=== PATIENT | male | born 1965 | race Caucasian/White ===

== ENCOUNTER 2019-06-08 19:18 | Emergency (ER) | payer OTHER ==
[~2019-06-08] VITALS: Ht 180.3 cm; Wt 83.9 kg
[2019-06-08] MEDS ORDERED: CIPR-262 PO (19:43)
[2019-06-08] MEDS ORDERED: CEFTRIAXONE 1 G VIAL IM ONE (20:15)
--- NOTE | 2019-06-08 21:15 | NUR ---
Patient discharged to home in stable conditon. Written and verbal after care instructions given. Patient verbalizes understanding of instructions. AMBULATORY W/ STABLE GAIT ALL BELONGINGS W/ PT
[2019-06-08] MEDS ORDERED: CEFTRIAXONE 1 G VIAL ONE (21:20)
[2019-06-08 21:57] VITALS: BP 136/89
== END 2019-06-08 21:20 | disposition home or self-care (01) ==
LOC: ER 19:20
DX: N34.2 Other urethritis (principal); F17.200 Nicotine dependence, unspecified, uncomplicated; Z79.2 Long term (current) use of antibiotics
CPT/HCPCS: 96372; 99283; J0696; J3490; A4663

== ENCOUNTER 2022-03-07 09:46 | Emergency (ER) | payer OTHER ==
[~2022-03-07] VITALS: Ht 180.3 cm; Wt 86.2 kg
[~2022-03-07 09:46] MED LIST: CIPR-262 PO
[2022-03-07] MEDS ORDERED: BICT1TAB PO (10:00)
[2022-03-07] MEDS ORDERED: CEPH500T PO ×2 (10:25→10:26)
[2022-03-07] MEDS ORDERED: SULF1TAB48 PO ×2 (10:25→10:26)
--- NOTE | 2022-03-07 10:48 | NUR ---
Patient discharged to home in stable condition with brisk steady gait. Written and verbal after care instructions given. Patient verbalized understanding and compliance of instructions. Stressed follow up with primary doctor and/or [facility] or return to ER for worsening s/s.
== END 2022-03-07 10:48 | disposition home or self-care (01) ==
LOC: ER 09:46
DX: L02.415 Cutaneous abscess of right lower limb (principal); L03.115 Cellulitis of right lower limb; R03.0 Elevated blood-pressure reading, without diagnosis of hypertension; Z86.19 Personal history of other infectious and parasitic diseases
CPT/HCPCS: A4663